=== PATIENT | female | born 1990 | race Hispanic/Latino ===

== ENCOUNTER 2021-01-14 01:20 | Emergency (ER) | payer OTHER ==
[2021-01-14 03:57] LABS: Basophils # (Auto) 0.1 K/mm3 (0.0-0.1); Basophils % (Auto) 0.4 % (0.0-1.8); Hematocrit 36.9 % (30.3-42.9); Hemoglobin 12.9 gm/dl (10.1-14.3); Lymphocytes # (Auto) 3.5 K/mm3 (1.2-5.4); Lymphocytes % (Auto) 23.8 % (13.4-35.0); Mean Corpuscular HGB Conc 35 % (30-34); Mean Corpuscular Volume 93 fl (79-97); Monocytes # (Auto) 0.9 K/mm3 (0.0-0.8); Monocytes % (Auto) 6.5 % (0.0-7.3); Platelet Count 343 K/mm3 (140-440); Red Blood Count 3.98 M/mm3 (3.65-5.03); Red Cell Distribution Width 13.7 % (13.2-15.2)
--- NOTE | 2021-01-14 04:20 | Ultrasound Report ---
ULTRASOUND OBSTETRIC INDICATION: with pelvic pain. TECHNIQUE: Transabdominal. COMPARISON: None available. FINDINGS: GESTATIONAL SAC: A possible intrauterine gestational sac measures 7.9 mm, consistent with an estimate d age of 5 weeks, 4 days. YOLK SAC: Not seen. EMBRYO/FETUS: None seen. ADNEXA: A right ovarian cyst measures up to 3.9 cm. No other significant abnormality. FREE FLUID: None. ADDITIONAL FINDINGS: None. IMPRESSION: Possible early intrauterine without identification of a yolk sac or pole. Close clini adelso and imaging follow-up is recommended. Signer Name: Hernan Zuñiga MD Signed: 01/14/2021 4:16 AM Workstation Name: [id number]
[2021-01-14 06:44] LABS: Bilirubin,Urine NEG (Negative); Blood,Urine NEG (Negative); Color,Urine Yellow (Yellow); Mucus,Urine 1+ /HPF; Protein,Urine <15 mg/dL mg/dL (Negative); Urobilinogen,Urine < 2.0 mg/dL (<2.0)
--- NOTE | 2021-01-14 06:48 | Emergency Department Report ---
ED Medical Clearance HPI - General Chief complaint: Medical Clearance Stated complaint: DETOX Time Seen by Provider: 01/14/21 06:42 Source: patient Mode of arrival: Ambulatory - History of Present Illness Initial comments: 30-year-old female presents emergency department in the care of [facility] for medical clearance evaluation. She is said to be pre gnant and they had found alcohol in her backpack so wanted to get her screen to be sure that she was okay with no complications or issues. Patient reports no pain, but no nausea, no vomiting states she takes her vitamins daily. Reports no chest pain or palpitations. Place: home Associated Symptoms: denies: shortness of breath, palpitations, denies other symptoms, headaches, anorexia, malaise, rash, seizure, syncope, weakness, other Treatments Prior to Arrival: none Allergies/Adverse reactions: Allergies Allergy/AdvReac Type Severity Reaction Status Date / Time niacin Allergy Hives Verified 01/14/21 03:12 ED Review of Systems ROS: Stated complaint: DETOX Other details as noted in HPI Comment: All other systems reviewed and negative ED Past Medical Hx - Past Medical History Previous Medical History?: Yes Hx Headaches / Migraines: Yes Additional medical history: Celiac Dz. Fibromyalgia - Surgical History Past Surgical History?: Yes Additional Surgical History: Left ACL. Tonsilectomy - Social History Smoking Status: Never Smoker Substance Use Type: Alcohol ED Physical Exam - General Limitations: No Limitations General appearance: alert, in no apparent distress - Head Head exam: Present: atraumatic, normocephalic - Eye Eye exam: Present: normal appearance - ENT ENT exam: Present: mucous membranes moist - Neck Neck exam: Present: normal inspection - Respiratory Respiratory exam: Present: normal lung sounds bilaterally. Absent: respiratory distress - Cardiovascular Cardiovascular Exam: Present: regular rate, normal rhythm. Absent: systolic murmur, diastolic murmur, rubs, gallop - GI/Abdominal GI/Abdominal exam: Present: soft, normal bowel sounds - Extremities Exam Extremities exam: Present: normal inspection - Back Exam Back exam: Present: normal inspection - Neurological Exam Neurological exam: Present: alert, oriented X3 - Psychiatric Psychiatric exam: Present: normal affect, normal mood - Skin Skin exam: Present: warm, dry, intact, normal color. Absent: rash ED Course Vital Signs 01/14/21 02:33 Temperature 97.9 F Pulse Rate 89 Respiratory 18 Rate Blood Pressure 108/67 O2 Sat by Pulse 100 Oximetry ED Medical Decision Making - Lab Data Result diagrams: 01/14/21 03:45 Lab Results 01/14/21 01/14/21 01/14/21 Range/Units 03:45 03:45 Unknown WBC 14.6 H (4.5-11.0) K/mm3 RBC 3.98 (3.65-5.03) M/mm3 Hgb 12.9 (10.1-14.3) gm/dl Hct 36.9 (30.3-42.9) % MCV 93 (79-97) fl MCH 32 (28-32) pg MCHC 35 H (30-34) % RDW 13.7 (13.2-15.2) % Plt Count 343 (140-440) K/mm3 Lymph % (Auto) 23.8 (13.4-35.0) % [place] % (Auto) 6.5 (0.0-7.3) % Eos % (Auto) 0.0 (0.0-4.3) % Baso % (Auto) 0.4 (0.0-1.8) % Lymph # (Auto) 3.5 (1.2-5.4) K/mm3 [place] # (Auto) 0.9 H (0.0-0.8) K/mm3 Eos # (Auto) 0.0 (0.0-0.4) K/mm3 Baso # (Auto) 0.1 (0.0-0.1) K/mm3 Seg Neutrophils % 69.3 (40.0-70.0) % Seg Neutrophils # 10.1 H (1.8-7.7) K/mm3 HCG, Quant [id number] H (0-4) mIU/mL Urine Bilirubin Neg (Negative) Urine RBC (Auto) 1.0 (0.0-6.0) /HPF U Epithel Cells (Auto) 3.0 (0-13.0) /HPF - Radiology Data Radiology results: report reviewed [address] [place] [id number] Ultrasound Report Signed Patient: JANE WILSON MR#: [id number] : 1990 Acct:[id number] Age/Sex: 30 / F ADM Date: 01/14/21 Loc: ED Attending Dr: Ordering Physician: FLO COFFEY MD Date of Service: 01/14/21 Procedure(s): US OB <= 14 wk fetus add gest Accession Number(s): [id number] cc: ED MD ERLINDA ULTRASOUND OBSTETRIC INDICATION: with pelvic pain. TECHNIQUE: Transabdominal. COMPARISON: None available. FINDINGS: GESTATIONAL SAC: A possible intrauterine gestational sac measures 7.9 mm, consistent with an estimated age of 5 weeks, 4 days. YOLK SAC: Not seen. EMBRYO/FETUS: None seen. ADNEXA: A right ovarian cyst measures up to 3.9 cm. No other significant abnormality. FREE FLUID: None. ADDITIONAL FINDINGS: None. IMPRESSION: Possible early intrauterine without identification of a yolk sac or pole. Close clinical and imaging follow-up is recommended. Signer Name: Hernan Zuñiga MD Signed: 01/14/2021 4:16 AM Workstation Name: [id number] Transcribed By: [place] Dictated By: Hernan Zuñiga MD Electronically Authenticated By: Hernan Zuñiga MD Signed Date/Time: 01/14/21415 DD/ 3 TD/TT: Print Cancel - Medical Decision Making 22-year-old female presents to the emergency department care plan: [facility]. Found to be in about 6 weeks with no significant complaints or concerns at this present time from the patient. Urine is clean her quant is of over 24,000 advised her to be reevaluated in the next 5 to 7 days to ensure all is well ED Disposition Clinical Impression: Disposition: DC-01 TO HOME OR SELFCARE Is pt being admited?: No Does the pt Need Aspirin: No Condition: Stable Instructions: First Trimester of , [id number] Referrals: [facility] [Primary Care Provider] - 3-5 Days [facility] [Provider Group] - 3-5 Days
[2021-01-14 07:47] VITALS: BP 100/66
== END 2021-01-14 07:15 | disposition home or self-care (01) ==
LOC: ED 01:20 → EEVIPCON 01:20 → ED 07:15
DX: Z34.91 Encounter for supervision of normal pregnancy, unspecified, first trimester (principal); Z3A.01 Less than 8 weeks gestation of pregnancy; Z88.8 Allergy status to other drugs, medicaments and biological substances; Z98.890 Other specified postprocedural states
CPT/HCPCS: 36415; 76801; 76802; 81001; 84702; 85025